=== PATIENT | male | born 1975 | race Caucasian/White ===

== ENCOUNTER 2021-07-08 13:13 | Emergency (ER) | payer BC, SELFPAY ==
[2021-07-08 13:19] VITALS: BP 150/80; PULSE 57; RESP 12; TEMP 37.2; O2SAT 98; BMI 30.5
[2021-07-08 14:18] LABS: Basophils % 0.4 %; Eosinophils # 0.1 10^3/uL (0.0-0.8); Eosinophils % 1.1 %; Hematocrit 44.7 % (42.0-52.0); Hemoglobin 14.5 g/dL (11.7-16.6); Lymphocytes # 1.1 10^3/uL (0.8-4.8); Lymphocytes % 12.1 %; Mean Corpuscular HGB Conc 32.4 g/dL (30.0-36.0); Mean Corpuscular Hemoglobin 28.8 pg (28.0-34.0); Mean Corpuscular Volume 88.7 fl (80-94); Mean Platelet Volume 10.2 fL (7.4-10.4); Monocytes # 0.9 10^3/uL (0.2-0.9); Monocytes % 9.4 %; Neutrophils # 7.23 10^3/uL (1.8-7.7); Neutrophils % 76.7 %; Nucleated Red Blood Cells % 0 %; Platelet Count 154 10^3/cmm (130-400); Red Blood Count 5.04 10^6/uL (4.1-5.3); Red Cell Distribution Width 14.3 % (12.1-15.1); White Blood Count 9.4 10^3/uL (4.0-10.0)
[2021-07-08 14:21] LABS: Add Urine Microscopic? NO; Charge for UA Resulting for Rev
[2021-07-08 14:27] LABS: Bilirubin Urine Neg (Negative); Blood Urine Neg (Negative); Glucose Urine UA Norm (Normal); Ketones Urine Negative (Negative); Leukocyte Esterase Urine Negative (Negative); Nitrate Urine Negative (Negative); Protein Urine Neg (Negative); Urine Appearance Clear (CLEAR); Urine Color Straw (Yellow); Urobilinogen Urine Norm (Negative); pH Urine 5 (5-7)
--- NOTE | 2021-07-08 14:40 | ED_ITS ---
HPI - Back Pain/Injury General: Chief Complaint: Back Pain/Injury Stated Complaint: LEFT FLANK PAIN Time Seen by Provider: 07/08/21 14:05 History of Present Illness: HPI Narrative: Left flank pain radiating to groin area x 2 days MD elicited complaint: back pain Quality: sharp Radiation: groin and left upper leg Review of Systems General: Reports: 10 or more systems reviewed and unremarkable except in HPI and below Musc: Reports: back pain and extremity pain; Denies: extremity swelling Physical Exam Const: COMMON NORMALS: no acute distress, patient oriented x3, no limitations and alert GENERAL APPEARANCE: cooperative and comfortable ORIENTATION /CONSCIOUSNESS: Yes awake, Yes oriented to person, Yes oriented to place and Yes oriented to time HENMT: COMMON NORMALS: normocephalic, atraumatic, external ears normal, EAC's normal, TM's normal bilaterally and Normal external nose present HEAD & SCALP: normal to inspection, normocephalic and atraumatic FACE & SINUS: normal facial exam, sinuses nontender and face symmetric NOSE: Normal external nose present, Normal nares present and No nasal discharge present EXTERNAL EAR: Yes external ears normal EXTERNAL AUDITORY CANAL: EAC's normal TYMPANIC MEMBRANE: TM's normal bilaterally MOUTH: Normal oral and palatal mucosa present, lip normal and tongue normal THROAT: posterior oropharynx normal, tonsils normal and uvula midline Eye: COMMON NORMALS: Equal, round and reactive pupils present, EOMs intact bilaterally and conjunctivae normal GENERAL EYE: appearance normal, both eyes and all related structures and normal light reflex EYELID: eyelids normal CONJUNCTIVA: Yes conjunctivae normal PUPIL: Yes Equal, round and reactive pupils present EOM: Yes EOM abnormal DIRECT OPHTHALMOSCOPY: Yes normal light reflex Neck/C-Spine: COMMON NORMALS: full ROM, no lymphadenopathy, supple, no meningeal signs, no JVD and Thyroid normal GENERAL: Yes normal visual inspection THYROID: Thyroid normal CERVICAL SPINE: Yes cervical ROM normal and Yes normal cervical lordosis Lymph: LYMPHATIC: no lymphadenopathy noted Chest: COMMONS NORMALS: normal inspection of the chest and normal palpation of entire chest wall Resp: COMMON NORMALS: normal respiratory effort, No retractions and clear to auscultation bilaterally AUSCULTATION: clear to auscultation bilaterally Cardio: COMMON NORMALS: no JVD, regular rate, regular rhythm, S1 normal heart sound present, S2 normal heart sound present, No gallops present (Cardio), No clicks present (Cardio), No murmurs present (Cardio), No rub (Cardio) and Peripheral pulses 2+ throughout RATE: regular rate RHYTHM: regular rhythm HEART SOUNDS: S1 normal heart sound present and S2 normal heart sound present PERIPHERAL PULSES: Peripheral pulses 2+ throughout GI: COMMON NORMALS: Normal to inspection, nondistended, normoactive bowel sounds present, Soft to palpation, non-tender and no masses PALPATION: Yes Soft to palpation : COMMON NORMALS: Yes no CVA tenderness BLADDER/KIDNEY EXAM: Yes no CVA tenderness and Yes CVA tenderness Back/Pelvis: COMMON NORMALS: no CVA tenderness, thoracic and lumbar spine normal to inspection, no thoracic nor lumbar tenderness and thoraco-lumbar ROM normal GENERAL BACK: Yes CVA tenderness CVA tenderness: left Extremity: COMMON NORMALS: normal to inspection, full ROM, capillary refill normal, no joint enlargement, no clubbing, cyanosis or edema, no calf tenderness and no pedal edema GENERAL: Yes normal exam except as noted Neuro: COMMON NORMALS: patient oriented x3, moves all extremities, no focal motor deficits, no sensory deficits noted and gait normal SENSORIUM/ORIENTATION: Yes alert, Yes oriented to person, Yes oriented to place and Yes oriented to time MENINGEAL SIGNS: Yes no meningeal signs Psych: COMMON NORMALS: mental status grossly normal, Normal thought process present, cooperative, normal affect, speech normal and activity/motor behavior normal SPEECH: Yes normal speech THOUGHT PROCESS: Normal thought process present Skin: COMMON NORMALS: no rashes or lesions noted, no wounds and turgor normal GENERAL SKIN EXAM: no rashes or lesions noted and turgor normal Course ED course: Pt presents to ER with complaint of left flank pain radiating to the left groin. He has hx of back pain and this is not similar to prior episodes. The pt states the pain is sharp and radiates through to left groin. He has been taking ibuprofen and hydrocodone. Pain can be pin pointed to the left flank area. No fever or NV. Labs and UA pending. Reevaluation(s): Reevaluation #1: Pt has a 2mm obstructive stone on the left UJV with mild to moderate hydronephrosis. Will defer/consult to my attending for next steps. Pt kidney function has been altered with his BUN at 28 and Creat at 2.6. Time: 16:12 Consultations: Consultation #1: Discussed with Dr. Sommers; pt is to follow up with urology in am. His office will call. Push fluids and NPO after midnight (water only). No Nsaids. Time: 16:31 Vital Signs: Vital signs: Vital Signs Temperature 99.0 F 07/08/21 13:19 Pulse Rate 57 L 07/08/21 13:19 Respiratory Rate 12 07/08/21 13:19 Blood Pressure 150/80 07/08/21 13:19 Pulse Oximetry 98 07/08/21 13:19 MDM - Back Pain/Injury Lab Data: Labs: Lab Results 07/08/21 07/08/21 07/08/21 13:49 14:11 14:11 WBC 9.4 10^3/uL 10^3/ uL (4.0-10.0) RBC 5.04 10^6/uL 10^6 /uL (4.1-5.3) Hgb 14.5 g/dL g/dL (11.7-16.6) Hct 44.7 % % (42.0-52.0) MCV 88.7 fl fl (80-94) MCH 28.8 pg pg (28.0-34.0) MCHC 32.4 g/dL g/dL (30.0-36.0) RDW 14.3 % % (12.1-15.1) Plt Count 154 10^3/cmm 10^3 /cmm (130-400) MPV 10.2 fL fL (7.4-10.4) Neut % (Auto) 76.7 % % Lymph % (Auto) 12.1 % % [place] % (Auto) 9.4 % % Eos % (Auto) 1.1 % % Baso % (Auto) 0.4 % % Neut # (Auto) 7.23 10^3/uL 10^3 /uL (1.8-7.7) Lymph # (Auto) 1.1 10^3/uL 10^3/ uL (0.8-4.8) [place] # (Auto) 0.9 10^3/uL 10^3/ uL (0.2-0.9) Eos # (Auto) 0.1 10^3/uL 10^3/ uL (0.0-0.8) Baso # (Auto) 0.0 10^3/uL 10^3/ uL (0.0-0.1) Nucleated RBC % (a uto) 0 % % Nucleated RBCs # 0.0 /100WBC /100W BC Sodium 138 mmol/L mmol/L (136-145) Potassium 4.5 mmol/L mmol/L (3.5-5.1) Chloride 102 mmol/L mmol/L (98-107) Carbon Dioxide 24 mmol/L mmol/L (22-29) Anion Gap 16.5 (5-19) BUN 28 mg/dL H mg/dL (6-20) Creatinine 2.6 mg/dL H mg/dL (0.7-1.2) GFR Calculation 26.7 mL/min L mL/ min (90-130) Glucose 108 mg/dL mg/dL (65-115) Calculated Osmolal ity 292 mOsm/kg mOsm/ kg (285-295) Calcium 9.1 mg/dL mg/dL (8.5-10.5) Total Bilirubin 0.3 mg/dL mg/dL (0.15-1.2) AST 19 U/L U/L (0-40) ALT 36 U/L U/L (0-41) Alkaline Phosphata se 67 IU/L IU/L (40-130) Total Protein 7.0 g/dL g/dL (6.6-8.7) Albumin 4.0 g/dL g/dL (3.5-5.2) Globulin 3.0 g/dL g/dL (1.3-4.6) Lipase 26 U/L U/L (13-60) Urine Color Straw (Yellow) Urine Appearance Clear (CLEAR) Urine pH 5 (5-7) Ur Specific Gravit y 1.020 (1.005-1.030) Urine Protein Neg (Negative) Urine Glucose (UA) Norm (Normal) Urine Ketones Negative (Negative) Urine Blood Neg (Negative) Urine Nitrate Negative (Negative) Urine Bilirubin Neg (Negative) Urine Urobilinogen Norm mg/dL mg/dL (Negative) Ur Leukocyte Emerita ase Negative (Negative) Discharge Plan Discharge Patient Disposition: Home Clinical Impression: Renal colic, Hydronephrosis concurrent with and due to calculi of kidney and ureter Condition: Stable Discharge Orders: Discharge ED (Routine); Ordered 07/08/21 Ordered By: Gely Marie Referrals: Jean Monk MD [Primary Care Provider] - Discharge Diet: Clear Liquid Discharge Activity: Increase activity as tolerated Patient Instructions: Abdominal Pain (ED), Opioid Safety Activity Restrictions/Additional Instructions: NPO AFTER MIDNIGHT Dr BRODERICK OFFICE IN AM NO NSAIDS (ibuprofen or aleve or aspirin) Stand Alone Forms: Work/School Release Coding Level of Care Code ED Registered Associate for Chg Fwd Exam Comprehensive
--- NOTE | 2021-07-08 15:11 | CTR_ITS ---
PROCEDURE INFORMATION: Exam: CT Abdomen And Pelvis Without Contrast Exam date and time: 07/08/2021 3:11 PM Age: 46 years old Clinical indication: Abdominal pain; Flank; Left; Additional info: Left flank pain TECHNIQUE: Imaging protocol: Computed tomography of the abdomen and pelvis without contrast. Radiation optimization: All CT scans at this facility use at least one of these dose optimization techniques: automated exposure control; mA and/or kV adjustment per patient size (includes targeted exams where dose is matched to clinical indication); or iterative reconstruction. COMPARISON: No relevant prior studies available. RADIATION DOSE METRICS: Total DLP (mGy-cm): 1888.96 FINDINGS: Liver: Normal. No mass. Gallbladder and bile ducts: Normal. No calcified stones. No ductal dilation. Pancreas: Normal. No ductal dilation. Spleen: Normal. No splenomegaly. Adrenal glands: Normal. No mass. Kidneys and ureters: There is a 2 mm calculus at the left UVJ.Mild to moderate hydronephrosis/hydroureter and associated inflammatory stranding. There are punctate nonobstructing bilateral renal calculi. Stomach and bowel: Colonic constipation is present. Appendix: A normal appendix is identified. Intraperitoneal space: Unremarkable. No free air. No significant fluid collection. Vasculature: Unremarkable. No abdominal aortic aneurysm. Lymph nodes: Unremarkable. No enlarged lymph nodes. Urinary bladder: Unremarkable as visualized. Reproductive: Unremarkable as visualized. Bones/joints: Unremarkable. No acute fracture. Soft tissues: Unremarkable. CT/CT abdomen pelvis wo con [id number] IMPRESSION: 1. There is a 2 mm calculus at the left UVJ with obstructive changes as described above. 2. There are punctate nonobstructing bilateral renal calculi. 3. Colonic constipation is present.
[2021-07-08 15:13] LABS: Alanine Aminotransferase 36 U/L (0-41); Alkaline Phosphatase 67 IU/L (40-130); Aspartate Amino Transferase 19 U/L (0-40); Blood Urea Nitrogen 28 mg/dL (6-20); Calcium 9.1 mg/dL (8.5-10.5); Carbon Dioxide 24 mmol/L (22-29); Chloride 102 mmol/L (98-107); Glomerular Filtration Rate 26.7 mL/min (90-130); Glucose 108 mg/dL (65-115); Lipase 26 U/L (13-60); Osmolality Calculated 292 mOsm/kg (285-295); Sodium 138 mmol/L (136-145); Total Bilirubin 0.3 mg/dL (0.15-1.2)
[2021-07-08 15:16] LABS: Anion Gap 16.5 (5-19); Potassium 4.5 mmol/L (3.5-5.1)
[2021-07-08] MEDS: sodium chloride 0.9% 500 ML IV (15:49)
--- NOTE | 2021-07-08 15:52 | PC.NURSE ---
Zach RN had Toradol pulled into syringe and laying on [place] stand for administration after IV start. During IV start, this RN bumped into the stand and knocked medication into trash can. This RN documented as Not Given and medication reordered.
[2021-07-08] MEDS: ketorolac 30 mg/mL INJ IVP (15:55)
--- NOTE | 2021-07-08 17:19 | PC.NURSE ---
reviewed all discharge instructions with patient and , advised to have noting by mouth after midnoc, to go to dr office first thing in the morning, both verbalize understanding of instructions, IV removed.
[2021-07-08 17:23] VITALS: BP 145/74; PULSE 62; RESP 12; TEMP 37.3; O2SAT 98
== END 2021-07-08 17:28 | disposition home or self-care (01) ==
PROVIDERS: Emergency Medicine; Emergency Provider Nurse Practitioner Family; PCP Family Medicine
DX: N13.2 Hydronephrosis with renal and ureteral calculous obstruction (principal)
CPT/HCPCS: 36415; 74176; 80053; 81003; 83690; 85025; 96361; 96374; 99283; J1885; J7040

== ENCOUNTER 2021-07-09 09:14 | Outpatient (CLI) | payer BC, SELFPAY ==
--- NOTE | 2021-07-09 09:27 | XR_ITS ---
WS: [id number] KUB, AP view, 07/09/2021 Clinical Data: STONES Comparison: None. Findings: No abnormal intraabdominal masses or calcifications are seen. There is no dilatated small bowel or ev idence of obstruction. The bladder is full. No distal ureteral calculi are seen. XR/XR KUB [id number] Impression: Negative KUB.
== END 2021-07-09 09:15 | disposition home or self-care (01) ==
LOC: RAD 09:17
PROVIDERS: PCP Family Medicine; Visit Provider Urology
DX: N13.2 Hydronephrosis with renal and ureteral calculous obstruction (principal)
CPT/HCPCS: 74018; 80048; 81003; 82365; 88300

== ENCOUNTER 2021-08-07 07:19 | Outpatient (CLI) | payer BC, SELFPAY ==
--- NOTE | 2021-08-07 07:00 | XR_ITS ---
WS: [id number] KUB, AP view, 08/07/2021 Clinical Data: BILATERAL RENAL STONES Comparison: KUB, 07/09/2021. Findings: No abnormal intraabdominal masses or calcifications are seen. There is no dilatated small bowel or ev idence of obstruction. There is a moderate amount of fecal material throughout the colon. XR/XR KUB [id number] Impression: Negative KUB.
== END 2021-08-07 07:20 | disposition home or self-care (01) ==
LOC: RAD 07:20
PROVIDERS: PCP Family Medicine; Visit Provider Urology
DX: N20.0 Calculus of kidney (principal)
CPT/HCPCS: 74018; 81003

== ENCOUNTER → 2022-05-02 08:05 | Outpatient (BNVA) | payer BC, SELFPAY | PROVIDERS: PCP Family Medicine; Visit Provider Family Medicine | DX: N18.31 Chronic kidney disease, stage 3a (principal) | CPT/HCPCS: 80048; 81000; 82310; 83970; 84100; 84550 ==

== ENCOUNTER 2022-08-08 07:11 | Outpatient (CLI) | payer BC, SELFPAY ==
--- NOTE | 2022-08-08 07:36 | XR_ITS ---
WS: [id number] Exam: XR KUB [id number] Date/Time of Exam: 08/08/2022 7:36 AM Reason For Exam: Bilateral Renal Stone Comparison 08/07/2021. No bowel obstruction or free air. Tiny calcifications are seen over both renal silhouettes and may re present renal calculi. No sign of organ enlargement. Regional bony elements are intact. XR/XR KUB [id number] IMPRESSION: 1. Tiny calcification superimpose both renal silhouettes and may represent bila teral renal calculi. No acute abdominal finding.
== END 2022-08-08 07:12 | disposition home or self-care (01) ==
LOC: RAD 07:13
PROVIDERS: PCP Family Medicine; Visit Provider Urology
DX: N20.0 Calculus of kidney (principal)
CPT/HCPCS: 74018; 81003

== ENCOUNTER → 2022-08-20 09:22 | Outpatient (BNVA) | payer BC, SELFPAY | PROVIDERS: PCP Family Medicine; Visit Provider Family Medicine | DX: Z00.00 Encounter for general adult medical examination without abnormal findings (principal) | CPT/HCPCS: 80061; 84550; 85025 ==

== ENCOUNTER → 2022-10-08 12:27 | Outpatient (BNVA) | payer BC, SELFPAY | PROVIDERS: PCP Family Medicine; Visit Provider Family Medicine | DX: Z00.00 Encounter for general adult medical examination without abnormal findings (principal); R79.89 Other specified abnormal findings of blood chemistry; J02.9 Acute pharyngitis, unspecified | CPT/HCPCS: 80048 ==

== ENCOUNTER → 2023-05-21 08:49 | Outpatient (BNVA) | payer BC, SELFPAY | PROVIDERS: PCP Family Medicine; Visit Provider Family Medicine | DX: R79.89 Other specified abnormal findings of blood chemistry (principal) | CPT/HCPCS: 80053 ==

== ENCOUNTER → 2023-08-08 08:44 | Outpatient (BNVA) | payer BC, SELFPAY | PROVIDERS: PCP Family Medicine; Visit Provider Family Medicine | DX: R79.89 Other specified abnormal findings of blood chemistry (principal) | CPT/HCPCS: 80053; 80061; 81000; 85025 ==

== ENCOUNTER → 2024-08-16 08:17 | Outpatient (BNVA) | payer BC, SELFPAY | PROVIDERS: PCP Family Medicine; Visit Provider Family Medicine | DX: Z00.00 Encounter for general adult medical examination without abnormal findings (principal); I10 Essential (primary) hypertension; R79.89 Other specified abnormal findings of blood chemistry; N20.1 Calculus of ureter | CPT/HCPCS: 80053; 80061; 84550; 85025 ==

== ENCOUNTER → 2024-10-07 10:07 | Outpatient (BNVA) | payer BC, SELFPAY | PROVIDERS: PCP Family Medicine; Visit Provider Family Medicine | DX: N20.1 Calculus of ureter (principal); N20.0 Calculus of kidney; R79.89 Other specified abnormal findings of blood chemistry; I10 Essential (primary) hypertension; N28.9 Disorder of kidney and ureter, unspecified; N18.9 Chronic kidney disease, unspecified | CPT/HCPCS: 80048; 80061; 80197; 81003; 82306; 82310; 82570; 83970; 84100; 84156; 84550; 85025 ==

== ENCOUNTER 2024-11-18 06:28 | Day surgery (SDC) | payer BC, SELFPAY ==
--- NOTE | 2024-11-18 05:41 | W.PM.OPSFHP ---
Same Day Surgery H&P Indication for Procedure/HPI DATE OF PROCEDURE: November 18, 2024 CHIEF COMPLAINT/INDICATIONFOR SURGICAL PROCEDURE: need for screening colonoscopy PREOP DIAGNOSIS: need for screening colonoscopy PLANNED PROCEDURE: Operation Date: 11/18/24 07:40 Proposed Procedures p Colonoscopy 34359 G0105 Z12.11(Not Applicable) - Leo Koch MD Medications/Allergies* Allergies/Adverse Reactions Allergy/AdvReac Type Severity Reaction Status Date / Time No Known Allergies Allergy Verified 11/15/24 09:42 Pertinent History/Comorbid Conditions* Medical History (Updated 08/20/22 @ 09:14 by Jean Monk MD) Bilateral renal stones Left ureteral calculus Family History (Updated 07/09/21 @ 10:08 by Susan Antunez LPN) Father, at age 78 Dementia Mother Heart attack Father Social History Smoking and tobacco/nicotine status: unknown if used tobacco/nicotine Alcohol intake: current Alcohol intake frequency: holidays/special occasions only Marital status: Current occupational status: employed Pertinent Exam Findings alert, oriented x 3, clear to auscultation bilaterally and regular rate & rhythm Recommendations Surgery/Procedure today Coding Level of Care Code Acute Code for Chg Toby
[2024-11-18] MEDS: sodium chloride 0.9% 1,000 ML 15 ML IV (06:38)
[2024-11-18 06:41] VITALS: RESP 18; TEMP 36.1; BMI 31.1
--- NOTE | 2024-11-18 07:02 | ANES.PREANE2 ---
Pre-Anesthetic Assessment Height/Weight: Height 6 ft Weight 230 lb Temp Resp 97.0 F L 18 11/18/24 06:41 11/18/24 06:41 Preop Diagnosis: need for screening colonoscopy Operation Date: 11/18/24 07:40 Proposed Procedures p Colonoscopy 54584 G0105 Z12.11(Not Applicable) - Leo Koch MD Was Beta Earl taken within 24 hours: N/A Was Clonidine taken within 24 hours: N/A Last intake: Intake Last Liquid Date 11/17/24 Last Liquid Time 20:00 Last Solid Date 11/16/24 Last Solid Time 18:30 Social No alcohol and No tobacco Exam alert and oriented x 3 Airway Submandibular: within normal limits Cervical ROM: within normal limits Mallampati: Class III Dentition: full Anesthetic Plan ASA status: 2 Anesthesia: MAC Other: No prior issues with anesthesia Completed bowel prep VANIA, no treatment Elevated baseline serum creatinine Denies any cardiac issues METs greater than 4 Plan for MAC anesthesia Medications/Allergies Home Medications ?Medication ?Instructions ?Recorded ?Confirmed ?Last Taken ?Type allopurinol 300 mg tablet 300 mg PO QDAY #60 tabs 08/24/24 11/15/24 11/17/24 07:00 Rx Allergies Allergy/AdvReac Type Severity Reaction Status Date / Time No Known Allergies Allergy Verified 11/18/24 06:39 Current Medications Generic Name Dose Route Start Last Admin Trade Name Freq PRN Reason Stop Dose Admin Sodium Chloride 1,000 mls @ 15 mls/hr 11/18/24 06:30 11/18/24 06:38 Sodium Chloride 0.9% IV 11/19/24 06:29 15 mls/hr .Q24H PRN Administration COLONOSCOPY FLUIDS PFSH Anesthesia Medical History Bilateral renal stones Left ureteral calculus Family History Mother Dementia Father , at age 78 Heart attack Social History Smoking and tobacco/nicotine status: unknown if used tobacco/nicotine Alcohol intake: current Alcohol intake frequency: holidays/special occasions only Marital status: Current occupational status: employed
[2024-11-18 07:57] VITALS: BP 99/79; PULSE 65; RESP 18; TEMP 36.3; O2SAT 95
[2024-11-18 08:15] VITALS: BP 103/74; PULSE 77; RESP 16; O2SAT 96
--- NOTE | 2024-11-18 08:30 | ANE.PACU2 ---
Inpatient post-anesthesia follow up: Airway intact: Yes Vital signs: Temperature 97.4 F Pulse Rate 77 Respiratory Rate 16 Blood Pressure 103/74 Pulse Oximetry 96 Oxygen Delivery Me thod Room Air Oxygen Flow Rate Fraction of Inspir ed Oxygen Hydration adequate: Yes Nausea and vomiting: No Pain level: 1 Mental status: Baseline
== END 2024-11-18 08:30 | disposition home or self-care (01) ==
PROVIDERS: PCP Family Medicine; Visit Provider Surgery
PROC: 0DJD8ZZ Inspection of Lower Intestinal Tract, Via Natural or Artificial Opening Endoscopic (ICD-10-PCS; CPT 45378; principal; 2024-11-18 07:40)
DX: Z12.11 Encounter for screening for malignant neoplasm of colon (principal); D12.0 Benign neoplasm of cecum; D12.2 Benign neoplasm of ascending colon; G47.33 Obstructive sleep apnea (adult) (pediatric); Z79.899 Other long term (current) drug therapy
CPT/HCPCS: 45385; 88305; J2704; J7030; J9999

== ENCOUNTER → 2025-03-10 11:56 | Outpatient (BNVA) | payer BC, SELFPAY | PROVIDERS: PCP Family Medicine; Visit Provider Family Medicine | DX: Z00.00 Encounter for general adult medical examination without abnormal findings (principal); N20.0 Calculus of kidney | CPT/HCPCS: 81000; 87086 ==

== ENCOUNTER 2025-03-16 15:32 | Outpatient (CLI) | payer BC, SELFPAY ==
--- NOTE | 2025-03-16 16:00 | CTR_ITS ---
PROCEDURE INFORMATION: Exam: CT Abdomen And Pelvis Without Contrast Exam date and time: 03/16/2025 3:50 PM Age: 49 years old Clinical indication: Abdominal pain; Right side flank and groin pain x 1 week, HX of stones; Additional info: Suspected right renal stone and persistent right groin pain TECHNIQUE: Imaging protocol: Computed tomography of the abdomen and pelvis without contrast. Radiation optimization: All CT scans at this facility use at least one of these dose optimization techniques: automated exposure control; mA and/or kV adjustment per patient size (includes targeted exams where dose is matched to clinical indication); or iterative reconstruction. COMPARISON: CT abdomen pelvis wo con [id number] 07/08/2021 3:36 PM RADIATION DOSE METRICS: Total DLP (mGy-cm): 693.56 FINDINGS: Diaphragm: Asymmetric elevation of the right hemidiaphragm. Liver: The liver is enlarged, measuring 20 cm craniocaudal. Gallbladder and biliary ducts: Normal. No calcified stones. No ductal dilation. Pancreas: Normal. No ductal dilation. Spleen: Normal. No splenomegaly. Adrenal glands: Normal. No mass. Kidneys and ureters: Multiple small left renal calculi measure up to 3 mm. Several small 2-3 mm right renal calculi are also seen. There is a 5 mm calculus in the distal right ureter just before the UVJ with an adjacent 2 mm calculus slightly proximally in the right ureter. Moderate upstream hydroureteronephrosis. Stomach and bowel: Moderate colonic stool can be seen with constipation. Appendix: No evidence of appendicitis. Intraperitoneal space: Unremarkable. No free air. No significant fluid collection. Vasculature: Unremarkable. No abdominal aortic aneurysm. Lymph nodes: Unremarkable. No enlarged lymph nodes. Urinary bladder: Mild bladder wall thickening is likely exaggerated by underdistention. Reproductive: Unremarkable as visualized. Bones/joints: Moderate to advanced degenerative disc disease at L4-L5 and L5-S1. Soft tissues: Small fat containing right inguinal hernia. Small fat containing umbilical hernia. CT/CT kidney stone [id number] IMPRESSION: 1. 5 mm calculus in the distal right ureter just before the UVJ with an adjacent 2 mm calculus and moderate upstream hydroureteronephrosis. 2. Additional punctate nonobstructing bilateral renal calculi.
== END 2025-03-16 15:33 | disposition home or self-care (01) ==
LOC: RAD 15:34
PROVIDERS: PCP Family Medicine; Visit Provider Family Medicine
DX: N13.2 Hydronephrosis with renal and ureteral calculous obstruction (principal); R16.0 Hepatomegaly, not elsewhere classified; K59.00 Constipation, unspecified; K40.90 Unilateral inguinal hernia, without obstruction or gangrene, not specified as recurrent; K42.9 Umbilical hernia without obstruction or gangrene
CPT/HCPCS: 74176

== ENCOUNTER → 2025-03-21 09:52 | Outpatient (BNVA) | payer BC, SELFPAY | PROVIDERS: PCP Family Medicine; Visit Provider Family Medicine | DX: N20.1 Calculus of ureter (principal) | CPT/HCPCS: 80048 ==

== ENCOUNTER 2025-03-24 10:24 | Outpatient (CLI) | payer BC, SELFPAY ==
--- NOTE | 2025-03-24 10:32 | XRR_ITS ---
PROCEDURE INFORMATION: Exam: XR Abdomen Exam date and time: 03/24/2025 10:42 AM Age: 49 years old Clinical indication: Condition or disease; Kidney or ureter condition; Calculus (stone) in kidney; Additional info: Renal stone on ct/ follow up TECHNIQUE: Imaging protocol: Radiologic exam of the abdomen. Views: Frontal supine view of the abdomen. 1 View. COMPARISON: CT kidney stone [id number] 03/16/2025 3:50 PM FINDINGS: Gastrointestinal tract: Normal. No bowel dilation. Intraperitoneal space: 7 mm stone in the right pelvis similar to prior CT of 03/16/[address] is more sensitive and specific for precise location. Bones/joints: Unremarkable. Other findings: No other abnormality. XR/XR KUB [id number] IMPRESSION: 7 mm stone in the right pelvis similar to prior CT of 03/16/[address] is more sensitive and specific for precise location.
== END 2025-03-24 10:25 | disposition home or self-care (01) ==
PROVIDERS: PCP Family Medicine; Visit Provider Family Medicine
DX: N20.0 Calculus of kidney (principal)
CPT/HCPCS: 74018

== ENCOUNTER → 2025-03-25 10:14 | Outpatient (BNVA) | payer BC, SELFPAY | PROVIDERS: PCP Family Medicine; Visit Provider Family Medicine | DX: N20.0 Calculus of kidney (principal) | CPT/HCPCS: 80048 ==

== ENCOUNTER → 2025-06-13 12:40 | Outpatient (BNVA) | payer BC, SELFPAY | PROVIDERS: PCP Family Medicine; Visit Provider Family Medicine | DX: R79.89 Other specified abnormal findings of blood chemistry (principal) | CPT/HCPCS: 80048 ==